=== PATIENT | female | born 1980 | race Caucasian/White ===

== ENCOUNTER 2019-03-28 16:13 | Observation (INO) | payer OTHER ==
[~2019-03-28] VITALS: Ht 165.1 cm; Wt 109.3 kg
[2019-03-28] MEDS ORDERED: BETAMETH ACET/BETAMETH NA PH 30 MG/5 ML VIAL IM ONE (17:51)
[2019-03-28] MEDS ORDERED: BETAMETH ACET/BETAMETH NA PH 30 MG/5 ML VIAL IM SCH (18:00)
[2019-03-28] MEDS ORDERED: PREN-380 PO (20:11)
[2019-03-29] MEDS ORDERED: PANTOPRAZOLE 40 MG TABEC PO SCH (09:00)
[2019-03-29] MEDS ORDERED: BETAMETH ACET/BETAMETH NA PH 30 MG/5 ML VIAL IM ONE (17:19)
== END 2019-03-29 17:45 | disposition home or self-care (01) ==
LOC: MFCC 16:13
PROVIDERS: ADMIT Obstetrics & Gynecology; ATTEND Obstetrics & Gynecology
DX: O36.8130 Decreased fetal movements, third trimester, not applicable or unspecified (principal); Z3A.34 34 weeks gestation of pregnancy
CPT/HCPCS: 36415; 76819; 76830; 82731; 93976; 96372; G0378; J0702; Q0092

== ENCOUNTER 2019-04-17 02:40 | Observation (INO) | payer OTHER ==
[~2019-04-17] VITALS: Ht 165.1 cm; Wt 112.5 kg
[~2019-04-17 02:40] MED LIST: PREN-380 PO
[2019-04-17 04:08] VITALS: BP 106/63
== END 2019-04-17 05:15 | disposition home or self-care (01) ==
LOC: MLD 02:40
PROVIDERS: ADMIT Obstetrics & Gynecology; ATTEND Obstetrics & Gynecology
DX: O62.9 Abnormality of forces of labor, unspecified (principal); O26.893 Other specified pregnancy related conditions, third trimester; R10.9 Unspecified abdominal pain; Z3A.38 38 weeks gestation of pregnancy
CPT/HCPCS: 81000; G0378

== ENCOUNTER 2019-04-23 16:52 | Inpatient (IN) | payer OTHER ==
[~2019-04-23] VITALS: Ht 165.1 cm; Wt 111.6 kg
[2019-04-23] MEDS ORDERED: CARBOPROST 250 MCG/ML AMP IM PRN (16:55)
[2019-04-23] MEDS ORDERED: OXYTOCIN 20 UNITS in LACTATED RINGERS 1,000 ML IV SCH (16:55)
[2019-04-23] MEDS ORDERED: METHYLERGONOVINE 0.2 MG/ML AMP IM PRN (16:55)
[2019-04-23 17:37] LABS: APPEARANCE,URINE CLEAR (CLEAR); BILIRUBIN,URINE NEGATIVE (NEGATIVE); BLOOD, URINE NEGATIVE (NEGATIVE); COLOR,URINE YELLOW (YELLOW); LEUKOCYTE ESTERASE ,URINE NEGATIVE (NEGATIVE); NITRITE, URINE NEGATIVE (NEGATIVE); UGLUCOSE NEGATIVE (NEGATIVE)
[2019-04-23 17:38] LABS: BASOPHILS # (AUTO) 0.2 K/uL (0.00-0.22); BASOPHILS % (AUTO) 1.7 % (0.0-2.0); EOSINOPHILS # (AUTO) 0.1 K/uL (0-0.4); EOSINOPHILS % (AUTO) 0.9 % (0.0-4.0); HEMATOCRIT 37.1 % (36-48); HEMOGLOBIN 12.1 g/dL (12.0-16.0); LYMPHOCYTES % (AUTO) 18.7 % (20.5-51.1); MEAN CORPUSCULAR HEMOGLOBIN 30 pg (27-31); MEAN CORPUSCULAR HGB CONC 33 g/dL (33-37); MEAN CORPUSCULAR VOLUME 91.5 fL (80-94); MONOCYTES % (AUTO) 9.5 % (1.7-9.3); NEUTROPHILS # (AUTO) 7.6 K/uL (1.8-7.7); NEUTROPHILS % (AUTO) 69.2 % (42.2-75.2); PLATELET COUNT (AUTO) 330 K/uL (140-450); RED BLOOD CELL COUNT(AUTO) 4.05 MIL/uL (4.20-5.40); RED CELL DISTRIBUTION WIDTH 15.2 % (11.6-13.7); WHITE BLOOD COUNT (AUTO) 10.9 K/uL (4.8-10.8)
[2019-04-23 17:44] LABS: BARBITURATE, URINE NEG. ng/ml (NEG <=200); BENZODIAZEPINE, URINE NEG. ng/mL (NEG <=200); CANNABINOID, URINE NEG. ng/mL (NEG <=50); COCAINE, URINE NEG. ng/mL (NEG <=300); OPIATE, URINE NEG. ng/mL (NEG <=2000); PHENCYCLIDINE SCREEN,URINE NEG. ng/mL (NEG <=25)
[2019-04-23 17:57] LABS: ANION GAP 13.8 (8-16); CARBON DIOXIDE 24.3 mmol/L (21-32); CREATININE 0.6 mg/dL (0.6-1.3); POTASSIUM 4.1 mmol/L (3.5-5.1)
[2019-04-23 18:02] LABS: ALBUMIN 2.8 g/dL (3.4-5.0); TOTAL BILIRUBIN 0.3 mg/dL (0.0-1.0)
[2019-04-23] MEDS ORDERED: MISOPROSTOL 25 MCG TAB ONE (18:02)
[2019-04-23 19:37] VITALS: BP 105/58
[2019-04-23] MEDS ORDERED: MISOPROSTOL 200 MCG TAB VG SCH (20:00)
[2019-04-23] MEDS ORDERED: AMPICILLIN 2,000 MG in NACL 0.9% 100 ML IV SCH (22:00)
[2019-04-23] MEDS ORDERED: AMPICILLIN 2,000 MG VIAL ONE (22:05)
[2019-04-24] MEDS ORDERED: fentaNYL 0.05 MG/ML VIAL IVP PRN ×2 (08:25→08:35)
[2019-04-24] MEDS ORDERED: fentaNYL 0.05 MG/ML VIAL ONE (09:09)
--- NOTE | 2019-04-24 09:16 | NUR ---
PATIENT HAS BEEN SCREENED AND CATEGORIZED LOW NUTRITION RISK. PATIENT WILL BE SEEN WITHIN 5-7 DAYS OF ADMISSION. 04/29/19-05/01/[address]
[2019-04-24] MEDS: LACTATED RINGERS 1,000 ML IV SCH ×3 (12:17→23:39)
[2019-04-24] MEDS: fentaNYL 0.05 MG/ML VIAL IVP PRN ×2 (17:11→20:01)
[2019-04-24] MEDS ORDERED: EPIDURAL KEYS MC ONE (22:31)
[2019-04-24] MEDS ORDERED: ROPIVACAINE 0.2%/NS PREMIX 100 ML EPI SCH (23:10)
[2019-04-25] MEDS: LACTATED RINGERS 1,000 ML IV SCH ×2 (00:05→04:57)
[2019-04-25] MEDS ORDERED: ONDANSETRON 4 MG/2 ML VIAL IVP PRN ×3 (00:45→08:45)
[2019-04-25] MEDS ORDERED: diphenhydrAMINE 50 MG/ML VIAL IVP PRN ×3 (00:45→08:45)
[2019-04-25] MEDS ORDERED: NALOXONE 0.4 MG/ML VIAL IVP PRN ×4 (00:45→08:45)
[2019-04-25] MEDS ORDERED: ROPIVACAINE 0.2%/NS PREMIX 100 ML EPI SCH (05:40)
[2019-04-25] MEDS ORDERED: MIDAZOLAM 2 MG/2 ML VIAL ONE (07:07)
[2019-04-25] MEDS ORDERED: MORPHINE PRES FREE 10 MG/10 ML AMP IV ONE (07:08)
[2019-04-25] MEDS ORDERED: LIDOCAINE MPF 2% 100 MG/5 ML VIAL INJ ONE (07:10)
[2019-04-25] MEDS ORDERED: ceFAZolin 1,000 MG VIAL ONE (07:17)
[2019-04-25] MEDS ORDERED: HYDROmorphone 1 MG/ML AMP IVP PRN ×2 (08:45→09:52)
[2019-04-25] MEDS ORDERED: MEPERIDINE 25 MG/ML SYR IVP PRN (08:45)
[2019-04-25] MEDS ORDERED: NALBUPHINE 10 MG/ML AMP IVP PRN (08:45)
[2019-04-25] MEDS ORDERED: OXYTOCIN 10 UNITS in LACTATED RINGERS 1,000 ML IV SCH (09:02)
[2019-04-25] MEDS ORDERED: METHYLERGONOVINE 0.2 MG/ML AMP IM PRN (09:05)
[2019-04-25] MEDS ORDERED: MEASLES, MUMPS, AND RUBELLA 1 VIAL SQVAC PRN (09:05)
[2019-04-25] MEDS ORDERED: KETOROLAC 30 MG/ML VIAL IM/IVP SCH (12:00)
[2019-04-25] MEDS: KETOROLAC 30 MG/ML VIAL IM/IVP SCH ×2 (13:04→18:55)
[2019-04-25] MEDS: OXYTOCIN 20 UNITS in LACTATED RINGERS 1,000 ML IV SCH ×2 (15:25→23:02)
[2019-04-25] MEDS ORDERED: PROMETHAZINE 25 MG/ML VIAL IVP PRN (18:45)
[2019-04-25] MEDS ORDERED: CARBOPROST 250 MCG/ML AMP IM PRN (18:45)
[2019-04-25] MEDS ORDERED: OXYTOCIN 20 UNITS/LR PREMIX 1,000 ML IV ONE (22:30)
[2019-04-26] MEDS: KETOROLAC 30 MG/ML VIAL IM/IVP SCH ×2 (00:07→06:42)
[2019-04-26] MEDS ORDERED: OXYTOCIN 20 UNITS/LR PREMIX 1,000 ML IV ONE (06:04)
[2019-04-26 06:29] LABS: BASOPHILS % (AUTO) 0.2 % (0.0-2.0); EOSINOPHILS # (AUTO) 0.2 K/uL (0-0.4); EOSINOPHILS % (AUTO) 1.3 % (0.0-4.0); HEMATOCRIT 28.9 % (36-48); HEMOGLOBIN 9.3 g/dL (12.0-16.0); LYMPHOCYTES # (AUTO) 2.3 K/uL (2.5-16.5); LYMPHOCYTES % (AUTO) 17.9 % (20.5-51.1); MEAN CORPUSCULAR HEMOGLOBIN 30 pg (27-31); MEAN CORPUSCULAR HGB CONC 32 g/dL (33-37); MEAN CORPUSCULAR VOLUME 92.4 fL (80-94); MONOCYTES # (AUTO) 1.1 K/uL (0.8-1.0); MONOCYTES % (AUTO) 8.7 % (1.7-9.3); NEUTROPHILS # (AUTO) 9.4 K/uL (1.8-7.7); NEUTROPHILS % (AUTO) 71.9 % (42.2-75.2); PLATELET COUNT (AUTO) 267 K/uL (140-450); RED BLOOD CELL COUNT(AUTO) 3.13 MIL/uL (4.20-5.40); RED CELL DISTRIBUTION WIDTH 15.1 % (11.6-13.7); WHITE BLOOD COUNT (AUTO) 13.1 K/uL (4.8-10.8)
[2019-04-26] MEDS: OXYTOCIN 20 UNITS in LACTATED RINGERS 1,000 ML IV SCH (06:40)
[2019-04-26] MEDS: oxyCODONE/APAP 5/325 MG 1 TAB TAB PO PRN ×4 (08:43→21:52)
[2019-04-26] MEDS: BISACODYL 10 MG SUPP RC SCH (09:00)
[2019-04-26] MEDS ORDERED: OXYTOCIN 20 UNITS in LACTATED RINGERS 1,000 ML IV SCH (09:02)
[2019-04-26] MEDS: SIMETHICONE 80 MG TAB.CHEW PO PRN (17:54)
[2019-04-26] MEDS: IBUPROFEN 800 MG TAB PO SCH (17:54)
[2019-04-27] MEDS: IBUPROFEN 800 MG TAB PO SCH (06:28)
[2019-04-27] MEDS: oxyCODONE/APAP 5/325 MG 1 TAB TAB PO PRN ×3 (08:27→21:13)
[2019-04-27] MEDS: BISACODYL 10 MG SUPP RC SCH (08:32)
[2019-04-27] MEDS: IBUPROFEN 600 MG TAB PO SCH ×2 (11:37→18:00)
[2019-04-28] MEDS: oxyCODONE/APAP 5/325 MG 1 TAB TAB PO PRN ×4 (03:21→23:27)
[2019-04-28] MEDS: IBUPROFEN 600 MG TAB PO SCH ×5 (06:09→21:05)
[2019-04-28] MEDS: SIMETHICONE 80 MG TAB.CHEW PO PRN (09:10)
[2019-04-28] MEDS: BISACODYL 10 MG SUPP RC SCH (09:10)
[2019-04-28] MEDS ORDERED: CAMERA MC ONE (20:53)
[2019-04-29] MEDS: oxyCODONE/APAP 5/325 MG 1 TAB TAB PO PRN (03:31)
[2019-04-29] MEDS: IBUPROFEN 600 MG TAB PO SCH ×2 (06:15→11:41)
[2019-04-29] MEDS: BISACODYL 10 MG SUPP RC SCH (09:30)
== END 2019-04-29 15:15 | disposition home or self-care (01) | DRG 540 ==
LOC: MLD 16:52 → MFCC 04-25 08:41
PROVIDERS: ADMIT Obstetrics & Gynecology; ATTEND Obstetrics & Gynecology
PROC: 3E0P7VZ Introduction of Hormone into Female Reproductive, Via Natural or Artificial Opening (ICD-10-PCS; 2019-04-23)
PROC: 3E033VJ Introduction of Other Hormone into Peripheral Vein, Percutaneous Approach (ICD-10-PCS; 2019-04-24)
PROC: 10D00Z1 Extraction of Products of Conception, Low, Open Approach (ICD-10-PCS; principal; 2019-04-25 06:30)
DX: O76 Abnormality in fetal heart rate and rhythm complicating labor and delivery (principal); D62 Acute posthemorrhagic anemia; E66.01 Morbid (severe) obesity due to excess calories; O99.214 Obesity complicating childbirth; Z37.0 Single live birth; Z3A.39 39 weeks gestation of pregnancy
CPT/HCPCS: 36415; 51702; 59200; 80053; 80305; 81003; 85025; 86592; 86886; 86900; 86901; 87653-90; J0290; J0690; J1885; J2001; J2175; J2250; J2270; J2405; J2590; J3010; J7060; J7120

== ENCOUNTER 2019-05-09 15:56 | Emergency (ER) | payer OTHER ==
[~2019-05-09] VITALS: Ht 165.1 cm; Wt 99.8 kg
[2019-05-09 16:40] VITALS: BP 107/72
--- NOTE | 2019-05-09 16:40 | NUR ---
TO LOBBY A/W BED AMBULATORY
[2019-05-09 17:41] LABS: BASOPHILS # (AUTO) 0.1 K/uL (0.00-0.22); BASOPHILS % (AUTO) 1.1 % (0.0-2.0); EOSINOPHILS # (AUTO) 0.2 K/uL (0-0.4); EOSINOPHILS % (AUTO) 2.6 % (0.0-4.0); HEMATOCRIT 36.5 % (36-48); HEMOGLOBIN 11.8 g/dL (12.0-16.0); LYMPHOCYTES # (AUTO) 2.7 K/uL (2.5-16.5); LYMPHOCYTES % (AUTO) 32.4 % (20.5-51.1); MEAN CORPUSCULAR HEMOGLOBIN 29 pg (27-31); MEAN CORPUSCULAR HGB CONC 32 g/dL (33-37); MEAN CORPUSCULAR VOLUME 90.5 fL (80-94); MONOCYTES # (AUTO) 0.6 K/uL (0.8-1.0); MONOCYTES % (AUTO) 7.6 % (1.7-9.3); NEUTROPHILS # (AUTO) 4.7 K/uL (1.8-7.7); NEUTROPHILS % (AUTO) 56.3 % (42.2-75.2); PLATELET COUNT (AUTO) 480 K/uL (140-450); RED BLOOD CELL COUNT(AUTO) 4.04 MIL/uL (4.20-5.40); WHITE BLOOD COUNT (AUTO) 8.4 K/uL (4.8-10.8)
[2019-05-09 18:03] LABS: ALBUMIN 3.6 g/dL (3.4-5.0); ANION GAP 12.2 (8-16); CARBON DIOXIDE 28.7 mmol/L (21-32); CREATININE 0.8 mg/dL (0.6-1.3); POTASSIUM 4.9 mmol/L (3.5-5.1); TOTAL BILIRUBIN 0.4 mg/dL (0.0-1.0)
[2019-05-09 18:05] LABS: PROTHROMBIN TIME 9.3 secs (10.8-13.4)
[2019-05-09 19:55] LABS: APPEARANCE,URINE CLEAR (CLEAR); BILIRUBIN,URINE NEGATIVE (NEGATIVE); BLOOD, URINE 3+ (NEGATIVE); COLOR,URINE YELLOW (YELLOW); LEUKOCYTE ESTERASE ,URINE 3+ (NEGATIVE); NITRITE, URINE NEGATIVE (NEGATIVE); UGLUCOSE NEGATIVE (NEGATIVE)
--- NOTE | 2019-05-09 20:01 | NUR ---
PT RESTING COMFORTABLY, WAITING TO GET LEFT LEG WRAPPED BEFORE DISCHARGE. PT VERBALIZED UNDERSTANDING OF AFTER CARE FOR LEG.
--- NOTE | 2019-05-09 20:11 | NUR ---
PT LEFT LEG WRAPPED WITH AMALIA BANDAGE.
[2019-05-09 20:13] LABS: WBC,URINE 16-25 (MOD) /HPF (0-5)
[2019-05-09 20:16] VITALS: BP 107/72
--- NOTE | 2019-05-09 20:16 | NUR ---
PT DISCHARGED WITH PAPERWORK. EDUCATED PT REGARDING DIAGNOSIS. PT VERBALIZED UNDERSTANDING. TOLD PT TO FOLLOW UP WITH PCP AND WHEN TO RETURN TO ED. PT AT STABLE CONDITION. ABLE TO AMBULATE WITH SLOW STEADY GAIT. ALL QUESTIONS ANSWERED.
== END 2019-05-09 20:16 | disposition home or self-care (01) ==
LOC: MED 15:56
DX: O9A.23 Injury, poisoning and certain other consequences of external causes complicating the puerperium (principal); S83.92XA Sprain of unspecified site of left knee, initial encounter; Z98.890 Other specified postprocedural states; Z79.899 Other long term (current) drug therapy; X50.0XXA Overexertion from strenuous movement or load, initial encounter; Y92.89 Other specified places as the place of occurrence of the external cause; Y93.01 Activity, walking, marching and hiking; Y99.8 Other external cause status
CPT/HCPCS: 36415; 80053; 81001; 81025; 84703; 85025; 85610; 85730; 87086; 93971; 99284; Q0092